=== PATIENT | male | born 1990 | race Caucasian/White ===

== ENCOUNTER 2024-01-20 08:07 | Outpatient (CLI) | payer OTHER | END 2024-01-20 08:18 | disposition home or self-care (01) | LOC: SONOGRAMA 08:07 | PROVIDERS: ATTEND General Practice | DX: M54.50 Low back pain, unspecified (principal); R80.9 Proteinuria, unspecified; R31.9 Hematuria, unspecified; R06.02 Shortness of breath ==

== ENCOUNTER → 2024-01-24 08:32 | Outpatient (CLI) | payer OTHER ==
[2024-01-24 09:29] LABS: HEMATOCRIT 43.3 % (39.0-48.0); HEMOGLOBIN 14.5 g/dL (13-16.00); MEAN CELL VOLUME 88.2 fL (80.0-100.00); MEAN CORPUSCULAR HEMOGLOBIN 29.4 pg (27.00-32.0); MEAN CORPUSCULAR HGB CONC 33.4 g/dl (32.0-36.0); PLATELET COUNT 302 K/uL (150-450); RED BLOOD COUNT 4.92 M/uL (4.00-6.00); RED CELL DISTRIBUTION WIDTH 12.7 % (11.5-14.5)
[2024-01-24 09:32] LABS: PH,URINE 5.5 (5.0-8.0); URINE APPEARANCE Clear; URINE BILIRRUBIN Negative (NEGATIVE); URINE BLOOD Negative; URINE COLOR Yellow; URINE GLUCOSE Negative (NEGATIVE); URINE KETONE Negative (NEGATIVE); URINE LEUKOCYTE Negative; URINE NITRATE Negative; URINE PROTEIN Negative (NEGATIVE); URINE UROBILINOGEN 0.2 E.U./dl
[2024-01-24 09:33] LABS: URINE BACTERIA 8.8 uL (0.0-1933); URINE EPITHELIAL CELLS 2.1 uL (0.0-38.8); URINE WBC 5.4 uL (0.0-23.2)
[2024-01-24 09:38] LABS: URINE CAST 0.45 uL (0.0-1.40); URINE RBC 1.5 uL (0.0-20.8)
[2024-01-24 10:42] LABS: ALBUMIN 4.3 gm/dL (3.4-5.0); BILIRUBIN TOTAL 0.39 mg/dL (0.3-1.2); CHOL HDL RATIO 4.2 (0-5.0); CREATININE SERUM 0.9 mg/dL (0.70-1.30); FERRITIN 174.4 NG/ML (26-388); GFR 97.18; GLOBULINA 3.1 G/DL (2.4-3.5); POTASSIUM 4.61 mEq/L (3.5-5.1); T4 FREE 0.88 NG/ML (0.76-1.46); TOTAL PROTEIN 7.4 gm/dL (6.4-8.2); TSH 0.795 uIU/mL (0.358-3.74)
[2024-01-24 12:19] LABS: FOLIC ACID 8.24 ng/ml (4.78-20)
== END | disposition home or self-care (01) ==
LOC: LAB 08:32
PROVIDERS: ATTEND General Practice
DX: M54.50 Low back pain, unspecified (principal); D50.9 Iron deficiency anemia, unspecified; E78.2 Mixed hyperlipidemia; E03.2 Hypothyroidism due to medicaments and other exogenous substances; R80.9 Proteinuria, unspecified; R31.9 Hematuria, unspecified; R10.9 Unspecified abdominal pain; Z12.11 Encounter for screening for malignant neoplasm of colon; Z13.1 Encounter for screening for diabetes mellitus

== ENCOUNTER 2024-02-06 08:23 | Outpatient (CLI) | payer OTHER | END 2024-02-06 08:41 | disposition home or self-care (01) | LOC: RAD 08:23 | PROVIDERS: ATTEND General Practice | DX: M54.50 Low back pain, unspecified (principal); M54.51 Vertebrogenic low back pain; M54.2 Cervicalgia; R07.9 Chest pain, unspecified; M41.80 Other forms of scoliosis, site unspecified | CPT/HCPCS: 72149 ==